=== PATIENT | female | born 1970 | race African-American/Black ===

== ENCOUNTER 2016-12-24 12:30 | Emergency (ER) | payer SELFPAY ==
[~2016-12-24] VITALS: Ht 170.2 cm; Wt 72.6 kg
[2016-12-24 12:37] VITALS: BP 152/83
[2016-12-24 12:54] LABS: BILIRUBIN,URINE NEGATIVE (NEG); GLUCOSE,URINE NEGATIVE (NEG); NITRITE,URINE NEGATIVE (NEG); PROTEIN,URINE NEGATIVE (NEG-TRACE); UROBILINOGEN,URINE 0.2 mg/dL (0.2 mg/dL)
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
[2016-12-24 13:03] LABS: BACTERIA,URINE FEW /HPF (0-FEW); RBC,URINE OCC /HPF (0-2); SQUAMOUS EPITHELIAL CELL,UR FEW /LPF
[2016-12-24] MEDS ORDERED: NITR100C62 PO (13:27)
[2016-12-24] MEDS ORDERED: METR500T PO (13:27)
== END 2016-12-24 13:30 | disposition home or self-care (01) ==
LOC: ER 12:30
DX: N76.0 Acute vaginitis (principal); N39.0 Urinary tract infection, site not specified; F41.9 Anxiety disorder, unspecified; E05.90 Thyrotoxicosis, unspecified without thyrotoxic crisis or storm; Z90.710 Acquired absence of both cervix and uterus
CPT/HCPCS: 81001; 87086; 87491; 87591; 99284; Q0111

== ENCOUNTER 2017-08-03 19:28 | Emergency (ER) | payer SELFPAY ==
[2017-08-03 19:51] LABS: URINE HCG POC HCG NEGATIVE (Negative)
[2017-08-03 19:51] LABS: BILIRUBIN,URINE NEGATIVE (NEG); CLARITY,URINE CLEAR; COLOR,URINE YELLOW; GLUCOSE,URINE NEGATIVE (NEG); NITRITE,URINE NEGATIVE (NEG); PROTEIN,URINE NEGATIVE (NEG-TRACE)
[2017-08-03 20:12] LABS: BACTERIA,URINE MODERATE /HPF (0-FEW); RBC,URINE RARE /HPF (0-2); SQUAMOUS EPITHELIAL CELL,UR OCC /LPF
[2017-08-03] MEDS: ONDANSETRON ODT 4 MG TAB.RAPDIS. PO (20:55)
[2017-08-03] MEDS: CEPHALEXIN 250 MG CAPSULE. PO (20:55)
[2017-08-03] MEDS: PHENAZOPYRIDINE 200 MG TABLET. PO (20:56)
[2017-08-05 14:26] LABS: CHLAMYDIA PROBE Negative (Negative); GC PROBE Negative (Negative)
== END 2017-08-03 21:06 | disposition home or self-care (01) ==
LOC: ER 19:28
DX: N39.0 Urinary tract infection, site not specified (principal); N76.0 Acute vaginitis; B96.89 Other specified bacterial agents as the cause of diseases classified elsewhere; E05.90 Thyrotoxicosis, unspecified without thyrotoxic crisis or storm; F41.9 Anxiety disorder, unspecified; F12.10 Cannabis abuse, uncomplicated; Z87.440 Personal history of urinary (tract) infections; Z90.710 Acquired absence of both cervix and uterus; Z98.51 Tubal ligation status
CPT/HCPCS: 81001; 81025; 87086; 87491; 87591; 99284; Q0111; Q0162

== ENCOUNTER 2017-10-22 12:08 | Emergency (ER) | payer SELFPAY | END 2017-10-22 14:33 | disposition home or self-care (01) | LOC: ER 12:08 | DX: S16.1XXA Strain of muscle, fascia and tendon at neck level, initial encounter (principal); S46.912A Strain of unspecified muscle, fascia and tendon at shoulder and upper arm level, left arm, initial encounter; M47.812 Spondylosis without myelopathy or radiculopathy, cervical region; E03.9 Hypothyroidism, unspecified; E05.90 Thyrotoxicosis, unspecified without thyrotoxic crisis or storm; F41.9 Anxiety disorder, unspecified; Z90.710 Acquired absence of both cervix and uterus; Z98.51 Tubal ligation status; X58.XXXA Exposure to other specified factors, initial encounter; Y93.F2 Activity, caregiving, lifting; Y92.89 Other specified places as the place of occurrence of the external cause; Y99.8 Other external cause status | CPT/HCPCS: 72040; 73030; 99284 ==

== ENCOUNTER 2018-11-16 18:38 | Emergency (ER) | payer SELFPAY ==
[~2018-11-16] VITALS: Ht 171.4 cm; Wt 66.2 kg
[~2018-11-16 18:38] MED LIST: CEPH-264 PO; CYCL10TA2 PO; METH4TAB2 PO; METR500T PO; METR70GE14 VG; NAPR-514 PO; NITR100C62 PO; PHEN-318 PO
[2018-11-16 19:32] VITALS: BP 146/93
[2018-11-16] MEDS ORDERED: LIDOCAINE WITH 8.4% SOD BICARB 3 ML DISP.SYRIN. INJ ONE (20:00)
[2018-11-16] MEDS ORDERED: DIPHTH,PERTUSS(ACELL),TET TOX 0.5 ML DISP.SYRIN. VAX IM ONE (21:00)
--- NOTE | 2018-11-16 21:26 | PHYS DOC ---
Past Medical History Past Medical History: Anxiety, Hyperthyroid, UTI Past Surgical History: Hysterectomy, Tubal ligation Alcohol Use: None Drug Use: Marijuana Adult General Chief Complaint Chief Complaint: LACERATION/AVULSION HPI HPI Patient is a 47 year old female who presents with right thumb laceration, patient is right-handed and was washing a drinking glass when it broke. Review of Systems Review of Systems Constitutional: Denies fever or chills [] Musculoskeletal: Denies back pain or joint pain [] Integument: Reports right hand laceration Neurologic: Denies headache, focal weakness or sensory changes [] All other systems were reviewed and found to be within normal limits, except as documented in this note. Current Medications Current Medications Current Medications Medications (Trade) Dose Ordered Sig/Paolo Start Time Stop Time Status Last Admin Dose Admin Diphtheria/ Tetanus/Acell Pertussis (Boostrix) 0.5 ml ONCE ONCE 11/16/18 21:00 11/16/18 21:01 DC 11/16/18 20:33 0.5 ML Lidocaine/Sodium Bicarbonate (Buffered Lidocaine 1%) 6 ml 1X ONCE 11/16/18 20:00 11/16/18 20:01 DC 11/16/18 19:45 6 ML Allergies Allergies Allergies Coded Allergies Type Severity Reaction Last Updated Verified No Known Drug Allergies 11/27/14 No Physical Exam Physical Exam Constitutional: Well developed, well nourished, no acute distress, non-toxic appearance. [] Skin: Dorsal aspect of the right thumb at the PIP joint with a laceration approximately 3 cm long, there is no obvious tendon involvement. Patient able to flex and extend the thumb with no difficulties. Adequate radial sensation to the right thumb. Cap refill less than 2 seconds the right thumb. +2 right radial pulse. Back: No tenderness, no CVA tenderness. [] Extremities: No tenderness, no cyanosis, no clubbing, ROM intact, no edema. [] Neurologic: Alert and oriented X 3, normal motor function, normal sensory function, no focal deficits noted. [] Psychologic: Affect normal, judgement normal, mood normal. [] Current Patient Data Vital Signs Vital Signs Date Time Temp Pulse Resp B/P (MAP) Pulse Ox O2 Delivery O2 Flow Rate FiO2 11/16/18 19:32 98.4 68 14 99 Room Air 98.4 EKG EKG [] Radiology/Procedures Radiology/Procedures Laceration/Wound Repair Wound Location: Right thumb Wound's Depth, Shape: horizontal Wound Length (cm): [] Wound Explored: clean Irrigated w/ Saline (ccs): 300 Betadine Prep?: Y Anesthesia: 1% buffered lidocaine Volume Anesthetic (ccs): 3 Wound Repaired With: Vicryl Suture Size/Type: 4.0/interrupted sutures Number of Sutures: 6 Progress wound was covered with nonstick dressing Course & Med Decision Making Course & Med Decision Making Pertinent Labs and Imaging studies reviewed. (See chart for details) This is a 47-year-old female patient presenting to the ED today with right thumb laceration after breaking a glass she was cleaning. Patient's laceration was closed by me as noted in procedures. Wound care instructions and return precautions provided. Tetanus updated. Dragon Disclaimer Dragon Disclaimer This electronic medical record was generated, in whole or in part, using a voice recognition dictation system. Departure Departure Impression: Primary Impression: Laceration of right thumb Disposition: 01 HOME, SELF-CARE Condition: STABLE Referrals: NO PCP (PCP) Follow-up with your doctor in 1-2 weeks as needed Patient Instructions: Fingertip Laceration Additional Instructions: You have right thumb laceration that was closed with dissolvable stitches, they will fall off on their own. Keep the area clean and dry. You can remove the dressing after 24 hours and leave it open to air if it's not draining. Apply Neosporin to the area twice a day. Monitor the area for any signs of infection including but not limited to increased redness, warmth, yellow drainage from the area and return to the ED if they occur or see your own doctor. Problem Qualifiers Primary Impression: Laceration of right thumb Encounter type: initial encounter Damage to nail status: without damage Foreign body presence: without foreign body Qualified Codes: S61.011A - Laceration without foreign body of right thumb without damage to nail, initial encounter MARCO PORTER APRN Nov 16, 2018 21:26
== END 2018-11-16 21:44 | disposition home or self-care (01) ==
LOC: ER 18:38
DX: S61.011A Laceration without foreign body of right thumb without damage to nail, initial encounter (principal); W25.XXXA Contact with sharp glass, initial encounter; Y93.89 Activity, other specified; Y92.89 Other specified places as the place of occurrence of the external cause; Y99.8 Other external cause status
CPT/HCPCS: 12002; 90471; 90715; 99283